=== PATIENT | female | born 1950 | race Two or more races ===

== ENCOUNTER 2017-12-27 10:44 | Outpatient (CLI) | payer OTHER | END 2017-12-27 10:48 | disposition home or self-care (01) | LOC: SONOGRAMA 10:44 | DX: C73 Malignant neoplasm of thyroid gland (principal) ==

== ENCOUNTER → 2019-01-18 | Outpatient (CLI) | payer OTHER | END | disposition home or self-care (01) | LOC: SONOGRAMA 13:31 → MAMO-SONO 14:15 | DX: C73 Malignant neoplasm of thyroid gland (principal) ==

== ENCOUNTER 2019-03-14 08:44 | Outpatient (CLI) | payer OTHER | END 2019-03-14 08:51 | disposition home or self-care (01) | LOC: SONOGRAMA 08:44 | DX: R59.9 Enlarged lymph nodes, unspecified (principal) ==

== ENCOUNTER 2020-03-05 10:06 | Outpatient (CLI) | payer OTHER | END 2020-03-05 10:38 | disposition home or self-care (01) | LOC: SONOGRAMA 10:06 → MAMO-SONO 10:15 → SONOGRAMA 10:38 | PROVIDERS: ATTEND Internal Medicine Sports Medicine | DX: C73 Malignant neoplasm of thyroid gland (principal) ==

== ENCOUNTER 2022-01-27 09:58 | Outpatient (CLI) | payer OTHER | END 2022-01-27 10:04 | disposition home or self-care (01) | LOC: SONOGRAMA 09:58 | PROVIDERS: ATTEND Internal Medicine Sports Medicine | DX: C73 Malignant neoplasm of thyroid gland (principal) ==

== ENCOUNTER 2024-07-12 10:00 | Outpatient (CLI) | payer OTHER | END 2024-07-12 10:05 | disposition home or self-care (01) | LOC: SONOGRAMA 10:00 | PROVIDERS: ATTEND Internal Medicine Sports Medicine | DX: C73 Malignant neoplasm of thyroid gland (principal) ==